=== PATIENT | female | born 1960 | race Caucasian/White ===

== ENCOUNTER 2019-05-31 09:43 | Emergency (ER) | payer OTHER ==
[~2019-05-31] VITALS: Ht 160 cm; Wt 79.4 kg
[2019-05-31] MEDS ORDERED: COUMADIN 5 MG TA5 M1 PO (09:52)
[2019-05-31] MEDS ORDERED: LIVALO4 MG PO (09:53)
[2019-05-31] MEDS ORDERED: COUMADIN7.5 MG PO (09:53)
[2019-05-31 11:02] VITALS: BP 194/89
== END 2019-05-31 11:03 | disposition home or self-care (01) ==
LOC: M.ERS 09:43
DX: L25.5 Unspecified contact dermatitis due to plants, except food (principal); F41.9 Anxiety disorder, unspecified; Q78.2 Osteopetrosis; Z90.89 Acquired absence of other organs; Z90.710 Acquired absence of both cervix and uterus